=== PATIENT | male | born 1940 | race Caucasian/White ===

== ENCOUNTER → 2021-06-21 | Outpatient (CLI) | payer MEDICARE ==
--- NOTE | 2021-06-21 13:08 | Diagnostic Imaging Report ---
Indication: Back pain. Time of Exam: 11:41 AM Single lateral view of the lumbar spine was obtained. Curvature is normal. There is grade 1 spondylolisthesis of L4 on L5 and L5 on S1. There appear to be pars defects at L5-S1. Vertebral body heights are maintained. No acute compression fracture seen. There is degenerative disc disease L1-2 level as well as L5-S1 levels. With disc space narrowing and marginal spurring. 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 Dictated by: Dictated on workstation # [id number]
== END ==
LOC: RAD FS 11:25
PROVIDERS: ATTEND Student in an Organized Health Care Education/Training Program
DX: M47.816 Spondylosis without myelopathy or radiculopathy, lumbar region (principal); M47.817 Spondylosis without myelopathy or radiculopathy, lumbosacral region; M43.16 Spondylolisthesis, lumbar region; M43.17 Spondylolisthesis, lumbosacral region
CPT/HCPCS: 72020